=== PATIENT | male | born 1955 | race American Indian/Alaskan Native ===

== ENCOUNTER 2019-06-18 07:59 | Observation (INO) | payer MEDICARE ==
[2019-06-18] MEDS ORDERED: ALBUTEROL 2.5 MG/3 ML NEBU IH ONE (08:20)
[2019-06-18] MEDS ORDERED: IPRATROPIUM 0.02% NEBU 2.5 ML IH ONE (08:20)
--- NOTE | 2019-06-18 08:45 | Emergency Department Report ---
ED Shortness of Breath HPI - General Chief Complaint: Dyspnea/Respdistress Stated Complaint: ZENON Time Seen by Provider: 06/18/19 08:18 Source: patient Mode of arrival: Stretcher Limitations: No Limitations - History of Present Illness Initial Comments: This is a 63-year-old male nontoxic, well nourished in appearance, no acute signs of distress presents to the ED with c/o of shortness of breathe and wheezing. He was brought by EMS and received 2 g of magnesium and Solu-Medrol and albuterol treatment. Patient stated that symptoms are improving but has not subsided. Patient denies any cough. Patient denies any sick contact. Patient denies any recent travels, long car, recent hospital stays. Patient denies any calf pain or calf tenderness. Patient denies any chest pain, fever, chills, nausea, vomiting, hemoptysis, numbness, tingling, headache or stiff neck. Past medical history includes COPD. MD Complaint: shortness of breath -: This morning Severity: mild Pain Scale: 0 Improves With: nothing Worsens With: nothing Known History Of: COPD Associated Symptoms: denies other symptoms Treatments Prior to Arrival: other (Sulomedtrol IV, albuterol, 2 g magnesium) - Related Data Home Oxygen Therapy: No Allergies Allergy/AdvReac Type Severity Reaction Status Date / Time No Known Allergies Allergy Verified 06/18/19 10:54 ED Review of Systems ROS: Stated complaint: ZENON Other details as noted in HPI Constitutional: denies: chills, fever Eyes: denies: eye pain, eye discharge, vision change ENT: congestion. denies: ear pain, throat pain Respiratory: shortness of breath, wheezing. denies: cough Cardiovascular: denies: chest pain, palpitations Endocrine: no symptoms reported Gastrointestinal: denies: abdominal pain, nausea, diarrhea Genitourinary: denies: urgency, dysuria Musculoskeletal: denies: back pain, joint swelling, arthralgia Skin: denies: rash, lesions Neurological: denies: headache, weakness, paresthesias Psychiatric: denies: anxiety, depression Hematological/Lymphatic: denies: easy bleeding, easy bruising ED Past Medical Hx - Past Medical History Previous Medical History?: Yes Hx Hypertension: Yes Hx Asthma: Yes - Surgical History Past Surgical History?: No - Social History Smoking Status: Current Every Day Smoker Substance Use Type: None ED Physical Exam - General Limitations: No Limitations General appearance: alert, in no apparent distress - Head Head exam: Present: atraumatic, normocephalic - Neck Neck exam: Present: normal inspection, full ROM. Absent: tenderness, meningismus, lymphadenopathy - Respiratory Respiratory exam: Present: normal lung sounds bilaterally, wheezes (bilateral). Absent: respiratory distress, rales, rhonchi, stridor, chest wall tenderness, accessory muscle use, decreased breath sounds, prolonged expiratory - Cardiovascular Cardiovascular Exam: Present: regular rate, normal rhythm, normal heart sounds. Absent: bradycardia, tachycardia, irregular rhythm, systolic murmur, diastolic murmur, rubs, gallop - Extremities Exam Extremities exam: Present: normal inspection, full ROM, normal capillary refill. Absent: tenderness - Back Exam Back exam: Present: normal inspection, full ROM - Neurological Exam Neurological exam: Present: alert, oriented X3, normal gait - Psychiatric Psychiatric exam: Present: normal affect, normal mood - Skin Skin exam: Present: warm, dry, intact, normal color. Absent: rash ED Course Vital Signs 06/18/19 06/18/19 08:27 10:53 Temperature 98 F Pulse Rate 84 76 Respiratory 16 16 Rate Blood Pressure 136/86 Blood Pressure 124/76 [Right] O2 Sat by Pulse 96 94 Oximetry - Reevaluation(s) Reevaluation #1: 06/18/19 08:46 Patient is speaking in full sentences with no signs of distress noted. Reevaluation #2: 06/18/19 10:58 Patient is still short of breath even after treatment. Patient sat has decreased to high 80s while ambulatory and low 90s on room air while laying still. Patient will be admitted for COPD exacerbation. ED Medical Decision Making - Lab Data Result diagrams: 06/18/19 08:42 06/18/19 08:42 - Medical Decision Making This is a 63-year-old male that presents with COPD exacerbation. Patient is currently stable and was examined by me and Dr. Mccullough. Patient received significant amount of treatment in the ER with no resolution. Patient stated symptoms of shortness of breath and wheezing are still there. Patient was ambulatory and a repeat of pulse ox has been obtained and the high 80s and patient has in the low 90s on room air while at rest. Patient is admitted with Dr. Hoff (hospitalist). X-ray does show that patient does have mild pulmonary edema. At time of admission, the patient does not seem toxic or ill in appearance. No acute signs of distress noted. Patient agrees to admission treatment plan of care. No further questions noted by the patient. Critical care attestation.: If time is entered above; I have spent that time in minutes in the direct care of this critically ill patient, excluding procedure time. ED Disposition Clinical Impression: COPD exacerbation Pulmonary edema Qualifiers: Chronicity: acute Qualified Code(s): J81.0 - Acute pulmonary edema Disposition: OP ADMIT IP TO THIS HOSP Is pt being admited?: Yes Condition: Stable
[2019-06-18 09:13] LABS: Basophils % (Auto) 0.9 % (0.0-1.8); Eosinophils % (Auto) 0.5 % (0.0-4.3); Hemoglobin 14.9 gm/dl (11.8-15.2); Lymphocytes # (Auto) 1.4 K/mm3 (1.2-5.4); Lymphocytes % (Auto) 31.8 % (13.4-35.0); Mean Corpuscular HGB Conc 33 % (32-34); Mean Corpuscular Volume 92 fl (84-94); Monocytes # (Auto) 0.3 K/mm3 (0.0-0.8); Monocytes % (Auto) 6.1 % (0.0-7.3); Platelet Count 185 K/mm3 (140-440); Red Blood Count 4.92 M/mm3 (3.65-5.03)
--- NOTE | 2019-06-18 09:17 | XRay Report ---
CHEST 2 VIEWS INDICATION / CLINICAL INFORMATION: Chest Pain. COMPARISON: None available. FINDINGS: SUPPORT DEVICES: None. HEART / MEDIASTINUM: No significant abnormality. LUNGS / PLEURA: Throughout both lungs, the pulmonary interstitial markings are mildly prominent. Ther e is no parenchymal consolidation or pleural fluid. No pneumothorax. ADDITIONAL FINDINGS: No significant additional findings. IMPRESSION: 1. There may be mild interstitial pulmonary edema. Signer Name: Mandeep Moody MD Signed: 06/18/2019 9:13 AM Workstation Name: [id number]
[2019-06-18 09:26] LABS: INR 1.13 (0.87-1.13); Partial Thromboplastin Time 27.3 Sec. (24.2-36.6)
[2019-06-18 09:40] LABS: Alanine Aminotransferase 23 units/L (7-56); Albumin 4.5 g/dL (3.9-5); BUN/Creatinine Ratio 14; Blood Urea Nitrogen 14 mg/dL (9-20); Calcium 9.5 mg/dL (8.4-10.2); Hemolysis Index 6
[2019-06-18] MEDS ORDERED: FUROSEMIDE 40 MG/4 ML INJ IV ONE (09:42)
[2019-06-18] MEDS ORDERED: ONDANSETRON 4 MG/2 ML INJ IV PRN (21:50)
[2019-06-18] MEDS ORDERED: HYDROmorphone 1 MG/1 ML INJ IV PRN (21:50)
[2019-06-18] MEDS ORDERED: IBUPROFEN 600 MG TAB PO PRN (21:50)
[2019-06-18] MEDS ORDERED: ACETAMINOPHEN 325 MG TAB PO PRN (21:50)
[2019-06-18] MEDS ORDERED: IPRATROPIUM/ALBUTEROL SULFATE 3 ML AMPUL.NEB IH PRN (21:51)
[2019-06-18] MEDS: methylPREDNISolone Sod Succinate 125 MG/2 ML INJ IV SCH (22:16)
[2019-06-18] MEDS: FAMOTIDINE 20 MG TAB PO SCH (22:16)
--- NOTE | 2019-06-18 22:28 | Consultation ---
History of Present Illness Consult date: 06/18/19 History of present illness: PULMONARY AND CRITICAL CARE CONSULTATION. DR. DANIELLE THANK YOU FOR ASKING US TO PARTICIPATE IN THE CARE OF THIS [ATIENT. This is a 63-year-old male nontoxic, well nourished in appearance, no acute si gns of distress presents to the ED with c/o of shortness of breathe and wheezing. He was brought by EMS and received 2 g of magnesium and Solu-Medrol and albuterol treatment. Patient stated that symptoms are improving but has not subsided. Patient denies any cough. Patient denies any sick contact. Patient denies any recent travels, long car, recent hospital stays. Patient denies any calf pain or calf tenderness. Patient denies any chest pain, fever, chills, nausea, vomiting, hemoptysis, numbness, tingling, headache or stiff neck. Past medical history includes COPD. Medications and Allergies Allergies Allergy/AdvReac Type Severity Reaction Status Date / Time No Known Allergies Allergy Verified 06/18/19 10:54 Active Meds: Active Medications Acetaminophen (Tylenol) 650 mg PO Q4H PRN PRN Reason: Pain MILD(1-3)/Fever >100.5/LUCIANO Albuterol/Ipratropium (Duoneb *Not For Prn Use*) 1 ampul IH Q3H PRN PRN Reason: Wheezing Albuterol/Ipratropium (Duoneb *Not For Prn Use*) 1 ampul IH QIDRT [facility] Famotidine (Pepcid) 20 mg PO BID [facility] Last Admin: 06/18/19 22:16 Dose: 20 mg Documented by: Hydromorphone HCl (Dilaudid) 0.5 mg IV Q3H PRN PRN Reason: Pain , Severe (7-10) Levofloxacin/Dextrose (Levaquin 750mg/150ml) 750 mg in 150 mls @ 100 mls/hr IV Q24HR@2200 [facility]; Protocol Last Admin: 06/18/19 22:16 Dose: 100 mls/hr Documented by: Ibuprofen (Ibuprofen) 600 mg PO Q6H PRN PRN Reason: Pain, Mild (1-3) Methylprednisolone Sodium Succinate (Solu-Medrol) 60 mg IV Q8HR [facility] Last Admin: 06/18/19 22:16 Dose: 60 mg Documented by: Ondansetron HCl (Zofran) 4 mg IV Q8H PRN PRN Reason: Nausea And Vomiting Sodium Chloride (Sodium Chloride Flush Syringe 10 Ml) 10 ml IV BID [facility] Sodium Chloride (Sodium Chloride Flush Syringe 10 Ml) 10 ml IV PRN PRN PRN Reason: LINE FLUSH Review of Systems All systems: negative Physical Examination Vital signs: Vital Signs Temp Pulse Resp BP Pulse Ox 98 F 84 16 136/86 96 06/18/19 08:27 06/18/19 08:27 06/18/19 08:27 06/18/19 08:27 06/18/19 08:27 Results - Laboratory Findings CBC and BMP: 06/18/19 08:42 06/18/19 08:42 ABG POC ABG pH 7.372 (7.35-7.45) 06/18/19 11:57 POC ABG pCO2 42.6 (35-45) 06/18/19 11:57 POC ABG pO2 62 (80-105) L 06/18/19 11:57 POC ABG HCO3 24.7 (22-26 mml/L) 06/18/19 11:57 POC ABG Total CO2 26 (23-27mmol/L) 06/18/19 11:57 POC ABG O2 Sat 91 06/18/19 11:57 PT/INR, D-dimer PT 14.4 Sec. (12.2-14.9) 06/18/19 08:42 INR 1.13 (0.87-1.13) 06/18/19 08:42 Abnormal lab findings: Abnormal Labs 06/18/19 06/18/19 08:42 11:57 POC ABG pO2 62 L Glucose 102 H - Diagnostic Findings Chest x-ray: report reviewed (REPORTED MILD INTERSTITIAL EDEMA.), image reviewed Assessment and Plan - Patient Problems (1) COPD exacerbation Current Visit: Yes Status: Acute (2) Pulmonary edema Current Visit: Yes Status: Acute Qualifiers: Chronicity: acute Qualified Code(s): J81.0 - Acute pulmonary edema
[2019-06-18] MEDS ORDERED: ALBUTEROL 2.5 MG/3 ML NEBU IH PRN (22:43)
[2019-06-19] MEDS: methylPREDNISolone Sod Succinate 125 MG/2 ML INJ IV SCH ×2 (05:22→14:39)
--- NOTE | 2019-06-19 06:30 | Event Note ---
Date: 06/18/19 See H/p in reports COPD exacerbation
--- NOTE | 2019-06-19 07:15 | History and Physical Report ---
CHIEF COMPLAINT: Increasing shortness of breath for 1 day. HISTORY OF PRESENT ILLNESS: A 63-year-old -[place] male, poor historian, comes in for increasing shortness of breath and wheezing. The patient called EMS and he was given nebulizer treatments, Solu-Medrol, and 2 grams of magnesium with no improvement. Denies any sick contacts, cough productive of mucoid sputum. No recent travel. No chest pain. PAST MEDICAL HISTORY: Significant for hypertension and asthma. PAST SURGICAL HISTORY: None. SOCIAL HISTORY: Smokes every day, pack a day. FAMILY HISTORY: Hypertension. REVIEW OF SYSTEMS: Significant for increasing shortness of breath and wheezing. No fever or chills. Otherwise, review of systems negative. PHYSICAL EXAMINATION: GENERAL: Elderly male, cooperative during examination. VITAL SIGNS: Initial sats were 91, temperature 98, pulse is 84, respirations 16. HEENT: Unremarkable. Pupils are equal and reactive. NECK: Supple, no lymphadenopathy, no thyromegaly. LUNGS: Bilateral inspiratory rhonchi and expiratory rhonchi present. Diminished air entry. CARDIOVASCULAR: S1, S2 heard. No gallop, no murmur, no rub. Apical impulse in left fifth intercostal space and midclavicular line. ABDOMEN: Soft and benign. No hepatosplenomegaly. No guarding, no rigidity. Hernial orifices are normal. EXTREMITIES: Good pedal pulses. No pedal edema. CENTRAL NERVOUS SYSTEM: Alert and oriented x 4, nonfocal exam. SKIN: Normal. LABORATORY DATA: CBC is normal. ABG shows pO2 of 62 and pH of 7.37. CMP is normal. Chest x-ray, no infiltrates, mild interstitial pulmonary edema. ASSESSMENT AND PLAN: 1. Acute respiratory failure. The patient initiated on IV Solu-Medrol, IV antibiotics and DuoNeb round the clock and p.r.n. 2.COPD exacerbation Duonebs IV solumedrol and IV Levaquin 3.Hypertension. Continue antihypertensives. 4. Nicotine dependence. The patient counseled about stopping smoking. Nicoderm patch initiated. 5. Deep venous thrombosis prophylaxis, heparin 5000 q.12. JOB# [id number] VSM/NTS MTDD
[2019-06-19 07:44] LABS: Basophils % (Auto) 0.1 % (0.0-1.8); Hematocrit 44.7 % (35.5-45.6); Hemoglobin 14.7 gm/dl (11.8-15.2); Lymphocytes # (Auto) 1.1 K/mm3 (1.2-5.4); Mean Corpuscular HGB Conc 33 % (32-34); Mean Corpuscular Volume 91 fl (84-94); Monocytes # (Auto) 0.1 K/mm3 (0.0-0.8); Monocytes % (Auto) 1.5 % (0.0-7.3); Platelet Count 201 K/mm3 (140-440); Red Blood Count 4.93 M/mm3 (3.65-5.03); Red Cell Distribution Width 13.8 % (13.2-15.2)
[2019-06-19 08:14] LABS: Alanine Aminotransferase 21 units/L (7-56); Albumin 4.6 g/dL (3.9-5); BUN/Creatinine Ratio 24; Blood Urea Nitrogen 22 mg/dL (9-20); Calcium 9.4 mg/dL (8.4-10.2); Hemolysis Index 7
[2019-06-19] MEDS: FAMOTIDINE 20 MG TAB PO SCH (09:10)
[2019-06-19] MEDS: IPRATROPIUM/ALBUTEROL SULFATE 3 ML AMPUL.NEB IH SCH ×2 (09:52→13:17)
[2019-06-19] MEDS ORDERED: HEPARIN 5,000 UNIT/1 ML VIAL SUB-Q SCH (10:00)
--- NOTE | 2019-06-19 13:10 | Discharge Summary ---
Providers - Providers Date of Admission: 06/18/19 11:14 Date of discharge: 06/19/19 Attending physician: CARMENCITA JACKSON 06/18/19 21:50 Consult to Physician [CONS] Routine Comment: Consulting Provider: LUIS RAWLS Physician Instructions: Reason For Exam: COPD exacerbation Primary care physician: AMARILIS EAGLE Hospitalization Condition: Stable Hospital course: Discharge diagnosis: Acute on chronic respiratory failure COPD exacerbation Tobacco abuse HTN Disposition: [id number] HOME [facility] Time spent for discharge: 34 minutes Core Measure Documentation - Palliative Care Palliative Care/ Comfort Measures: Not Applicable - Core Measures Any of the following diagnoses?: none Exam - Constitutional Vitals: Temp Pulse Resp BP Pulse Ox 98.1 F 88 18 159/89 97 06/19/19 04:58 06/19/19 09:50 06/19/19 04:58 06/18/19 21:26 06/19/19 04:58 General appearance: Present: no acute distress, well-nourished - EENT Eyes: Present: PERRL ENT: hearing intact, clear oral mucosa - Neck Neck: Present: supple, normal ROM - Respiratory Respiratory effort: normal Respiratory: bilateral: CTA - Cardiovascular Heart Sounds: Present: S1 & S2. Absent: rub, click - Extremities Extremities: pulses symmetrical, No edema Peripheral Pulses: within normal limits - Abdominal General gastrointestinal: Present: soft, non-tender, non-distended, normal bowel sounds - Integumentary Integumentary: Present: clear, warm, dry - Musculoskeletal Musculoskeletal: gait normal, strength equal bilaterally - Psychiatric Psychiatric: appropriate mood/affect, intact judgment & insight - Neurologic Neurologic: CNII-XII intact, moves all extremities Plan Activity: advance as tolerated Weight Bearing Status: Weight Bear as Tolerated Diet: low fat, low salt Follow up with: PRIMARY CARE, [Referring] - 3-5 Days LUIS RAWLS MD [Staff Physician] - 7 Days Prescriptions: Prednisone [predniSONE 10 mg (6-Day Pack, 21 Tabs)] 10 mg PO .TAPER #1 tab.ds.pk Azithromycin [Zithromax Z-MJ] 250 mg PO DAILY #5 tab
--- NOTE | 2019-06-19 13:38 | Consultation ---
History of Present Illness Consult date: 06/19/19 Reason for consult: dyspnea, cough, COPD History of present illness: PULMONARY AND CRITICAL CARE CONSULTATION DR. Gonzalez THANK YOU FOR ASKING US TO PARTICIPATE IN THE CARE OF THIS PATIENT. his is a 63-year-old male well nourished in appearance, presents to the ED with c/o of shortness of breathe and wheezing. He was brought by EMS and received 2 g of magnesium and Solu-Medrol and albuterol treatment. Patient stated that symptoms are improving but has not subsided. Patient denies any cough. Patient denies any sick contact. Patient denies any recent travels, long car, recent ho spital stays. Patient denies any calf pain or calf tenderness. Patient denies any chest pain, fever, chills, nausea, vomiting, hemoptysis, numbness, tingling, headache or stiff neck. Past medical history includes COPD. Patient was a heavy history of smoking 3-4 packs for 30 years. Counseled on smoking cessation. Denies Alcohol or drug abuse. 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 Denies any allergies to medications. He is not and has 3 children. Two Children have . Pt has a history of HTN, Hyperchoestermia. Pt is presently resting on room air and O2 saturation is 97%. Chest X-ray reported mild interstitial pulmonary edema Past History Past Medical History: hypertension, hyperlipidemia Social history: single Medications and Allergies Allergies Allergy/AdvReac Type Severity Reaction Status Date / Time No Known Allergies Allergy Verified 06/18/19 10:54 Home Medications Medication Instructions Recorded Confirmed Last Taken Type Azithromycin [Zithromax Z-MJ] 250 mg PO DAILY #5 tab 06/19/19 Unknown Rx Prednisone [predniSONE 10 mg 10 mg PO .TAPER #1 tab.ds.pk 06/19/19 Unknown Rx (6-Day Pack, 21 Tabs)] Active Meds: Active Medications Acetaminophen (Tylenol) 650 mg PO Q4H PRN PRN Reason: Pain MILD(1-3)/Fever >100.5/LUCIANO Albuterol (Proventil) 2.5 mg IH Q3HRT PRN PRN Reason: Wheezing Albuterol/Ipratropium (Duoneb *Not For Prn Use*) 1 ampul IH QIDRT [facility] Last Admin: 06/19/19 09:52 Dose: 1 ampul Documented by: Famotidine (Pepcid) 20 mg PO BID [facility] Last Admin: 06/19/19 09:10 Dose: 20 mg Documented by: Heparin Sodium (Porcine) (Heparin) 5,000 unit SUB-Q Q12HR [facility] Last Admin: 06/19/19 09:10 Dose: 5,000 unit Documented by: Hydromorphone HCl (Dilaudid) 0.5 mg IV Q3H PRN PRN Reason: Pain , Severe (7-10) Levofloxacin/Dextrose (Levaquin 750mg/150ml) 750 mg in 150 mls @ 100 mls/hr IV Q24HR@2200 [facility]; Protocol Last Admin: 06/18/19 22:16 Dose: 100 mls/hr Documented by: Ibuprofen (Ibuprofen) 600 mg PO Q6H PRN PRN Reason: Pain, Mild (1-3) Methylprednisolone Sodium Succinate (Solu-Medrol) 60 mg IV Q8HR [facility] Last Admin: 06/19/19 05:22 Dose: 60 mg Documented by: Ondansetron HCl (Zofran) 4 mg IV Q8H PRN PRN Reason: Nausea And Vomiting Sodium Chloride (Sodium Chloride Flush Syringe 10 Ml) 10 ml IV BID [facility] Last Admin: 06/19/19 09:37 Dose: 10 ml Documented by: Sodium Chloride (Sodium Chloride Flush Syringe 10 Ml) 10 ml IV PRN PRN PRN Reason: LINE FLUSH Review of Systems All systems: negative Physical Examination Vital signs: Vital Signs Temp Pulse Resp BP Pulse Ox 98 F 84 16 136/86 96 06/18/19 08:27 06/18/19 08:27 06/18/19 08:27 06/18/19 08:27 06/18/19 08:27 General appearance: no acute distress, alert Eyes: non-icteric ENT: oropharynx moist Neck: supple, no lymphadenopathy Effort: normal Ascultation: Bilateral: other (prolonged expiratory phase) Cardiovascular: regular rate and rhythm Gastrointestinal: normoactive bowel sounds, non-distended Integumentary: normal Extremities: no cyanosis Musculoskeletal: no deformities normal mental status mood appropriate, affect normal Results - Laboratory Findings CBC and BMP: 06/19/19 06:40 06/19/19 06:40 ABG POC ABG pH 7.372 (7.35-7.45) 06/18/19 11:57 POC ABG pCO2 42.6 (35-45) 06/18/19 11:57 POC ABG pO2 62 (80-105) L 06/18/19 11:57 POC ABG HCO3 24.7 (22-26 mml/L) 06/18/19 11:57 POC ABG Total CO2 26 (23-27mmol/L) 06/18/19 11:57 POC ABG O2 Sat 91 06/18/19 11:57 PT/INR, D-dimer PT 14.4 Sec. (12.2-14.9) 06/18/19 08:42 INR 1.13 (0.87-1.13) 06/18/19 08:42 Abnormal lab findings: Abnormal Labs 06/18/19 06/18/19 06/19/19 08:42 11:57 06:40 Lymph # 1.1 L Seg Neutrophils % 84.4 H POC ABG pO2 62 L Carbon Dioxide BUN Glucose 102 H 06/19/19 06:40 Lymph # Seg Neutrophils % POC ABG pO2 Carbon Dioxide 20 L BUN 22 H Glucose 146 H - Diagnostic Findings Chest x-ray: report reviewed (Reported mild interstitial edema.), image reviewed Assessment and Plan his is a 63-year-old male well nourished in appearance, presents to the ED with c/o of shortness of breathe and wheezing. He was brought by EMS and received 2 g of magnesium and Solu-Medrol and albuterol treatment. Patient stated that symptoms are improving but has not subsided. Patient denies any cough. Patient denies any sick contact. Patient denies any recent travels, long car, recent hospital stays. Patient denies any calf pain or calf tenderness. Patient denies any chest pain, fever, chills, nausea, vomiting, hemoptysis, numbness, tingling, headache or stiff neck. Past medical history includes COPD. Patient was a heavy history of smoking 3-4 packs for 30 years. Counseled on smoking cessation. Denies Alcohol or drug abuse. 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 Denies any allergies to medications. He is not and has 3 children. Two Children have . Pt has a history of HTN, Hyperchoestermia. Pt is presently resting on room air and O2 saturation is 97%. Chest X-ray reported mild interstitial pulmonary edema Patient is going home and can come to my office for outpatient pulmonary follow- up. - Patient Problems (1) COPD exacerbation Current Visit: No Status: Acute Plan to address problem: Albuterol/Atrovent airsol treatment Q6 hrs continue solumedrol Continue Azithromax Continue subq heparin continue pepcid PFT as outpatient (2) Pulmonary edema Current Visit: No Status: Acute Qualifiers: Chronicity: acute Qualified Code(s): J81.0 - Acute pulmonary edema Plan to address problem: If patient develops more shortness of breath recommend Lasix
[2019-06-19 18:24] VITALS: BP 155/77
== END 2019-06-19 15:44 | disposition home or self-care (01) ==
LOC: ED 07:59 → INTOOBSV 11:14 → 3A 11:14
PROVIDERS: ADMIT Internal Medicine; ATTEND Internal Medicine
DX: J44.1 Chronic obstructive pulmonary disease with (acute) exacerbation (principal); J80 Acute respiratory distress syndrome; J81.0 Acute pulmonary edema; I10 Essential (primary) hypertension; E78.5 Hyperlipidemia, unspecified; E78.00 Pure hypercholesterolemia, unspecified; F17.210 Nicotine dependence, cigarettes, uncomplicated; Z71.6 Tobacco abuse counseling; Z79.899 Other long term (current) drug therapy
CPT/HCPCS: 36415; 36600; 71046; 80053; 82803; 83036; 83880; 84484; 85025; 85610; 85730; 93005; 93010; 94644; 96365; 96366; 96372; 96375; 96376; 99284; 99406; G0378; J1644; J1940; J1956; J2930